=== PATIENT | male | born 1965 | race Caucasian/White ===

== ENCOUNTER 2017-09-20 10:06 | Inpatient (IN) | payer OTHER ==
[2017-09-20] MEDS ORDERED: IPRATROPIUM-ALBUTEROL 3 ML NEB INHALATION STA (10:18)
[2017-09-20] MEDS ORDERED: SODIUM CHLORIDE 0.9% 1,000 ML IV STA (10:18)
--- NOTE | 2017-09-20 10:28 | ED ---
SOB HPI - General Chief Complaint: Shortness of Breath Stated Complaint: SOB Time Seen by Provider: 09/20/17 10:13 Source: patient, RN notes reviewed Mode of arrival: ambulatory Limitations: no limitations - History of Present Illness Initial Comments: This is a 52-year-old male with a benign past medical history states she's had shortness of breath exertional dyspnea for about a week he get worse since last night. He was seen in outpatient clinic and sent here for further evaluation. He was told he may have fluid around his heart. He denies any fevers chills sweats he does not smoke he works as a clinical services specialist. There is a family history of COPD he has no chest pain with this no other modifying factors. MD Complaint: shortness of breath, cough - Related Data Allergies Allergy/AdvReac Type Severity Reaction Status Date / Time Sulfa (Sulfonamide Allergy Unknown Verified 09/20/17 10:10 Antibiotics) Review of Systems ROS Statement: Those systems with pertinent positive or pertinent negative responses have been documented in the HPI. ROS Other: All systems not noted in ROS Statement are negative. Past Medical History Past Medical History: Hypertension History of Any Multi-Drug Resistant Organisms: None Reported Past Surgical History: No Surgical Hx Reported Past Psychological History: No Psychological Hx Reported Smoking Status: Never smoker Past Alcohol Use History: Daily Past Drug Use History: None Reported General Exam - General Exam Comments Initial Comments: This is a well-developed well-nourished awake alert oriented 3 male Limitations: no limitations General appearance: alert, in no apparent distress Head exam: Present: atraumatic, normocephalic, normal inspection Eye exam: Present: normal appearance, PERRL, EOMI. Absent: scleral icterus, conjunctival injection, periorbital swelling ENT exam: Present: normal exam, mucous membranes moist Neck exam: Present: normal inspection. Absent: tenderness, meningismus, lymphadenopathy Respiratory exam: Present: decreased breath sounds. Absent: respiratory distress, wheezes, rales, rhonchi, stridor Cardiovascular Exam: Present: regular rate, normal rhythm, normal heart sounds. Absent: systolic murmur, diastolic murmur, rubs, gallop, clicks GI/Abdominal exam: Present: soft, normal bowel sounds. Absent: distended, tenderness, guarding, rebound, rigid Extremities exam: Present: normal inspection, full ROM, normal capillary refill. Absent: tenderness, pedal edema, joint swelling, calf tenderness Back exam: Present: normal inspection Neurological exam: Present: alert, oriented X3, CN II-XII intact Psychiatric exam: Present: normal affect, normal mood Skin exam: Present: warm, dry, intact, normal color. Absent: rash Course Vital Signs 09/20/17 09/20/17 09/20/17 10:07 10:50 11:01 Temperature 99.2 F Pulse Rate 60 114 H 110 H Respiratory 20 Rate Blood Pressure 146/109 O2 Sat by Pulse 96 Oximetry 09/20/17 09/20/17 11:22 12:38 Temperature Pulse Rate 110 H 97 Respiratory 18 18 Rate Blood Pressure 149/67 124/90 O2 Sat by Pulse 98 98 Oximetry - Reevaluation(s) Reevaluation #1: 09/20/17 12:48 The patient did get relief from the dyspnea with the updraft treatment was rendered. No chest pain reported. Medical Decision Making - Medical Decision Making Reevaluation patient did reveal he was feeling improved he was noted however in a monitored have PVCs. After long discussion with patient family patient will be admitted for workup for new onset congestive heart failure. The etiology is unclear at this time. I did discuss case with Dr. Duffy. Did have multiple discussions with the family members also. - Lab Data Result diagrams: 09/20/17 10:23 09/20/17 10:23 Lab Results 09/20/17 09/20/17 09/20/17 Range/Units 10:23 10:23 10:23 WBC 8.0 (3.8-10.6) k/uL RBC 5.31 (4.30-5.90) m/uL Hgb 16.5 (13.0-17.5) gm/dL Hct 49.2 (39.0-53.0) % MCV 92.6 (80.0-100.0) fL MCH 31.1 (25.0-35.0) pg MCHC 33.6 (31.0-37.0) g/dL RDW 13.4 (11.5-15.5) % Plt Count 161 (150-450) k/uL Neutrophils % 70 % Lymphocytes % 20 % Monocytes % 7 % Eosinophils % 1 % Basophils % 0 % Neutrophils # 5.6 (1.3-7.7) k/uL Lymphocytes # 1.6 (1.0-4.8) k/uL Monocytes # 0.6 (0-1.0) k/uL Eosinophils # 0.1 (0-0.7) k/uL Basophils # 0.0 (0-0.2) k/uL PT (9.0-12.0) sec INR (<1.2) APTT (22.0-30.0) sec D-Dimer (<0.60) mg/L FEU Sodium 137 (137-145) mmol/L Potassium 4.4 (3.5-5.1) mmol/L Chloride 105 (98-107) mmol/L Carbon Dioxide 17 L (22-30) mmol/L Anion Gap 15 mmol/L BUN 12 (9-20) mg/dL Creatinine 0.91 (0.66-1.25) mg/dL Est GFR (CKD-EPI)AfAm >90 (>60 ml/min/1.73 sqM) Est GFR (CKD-EPI)NonAf >90 (>60 ml/min/1.73 sqM) Glucose 111 H (74-99) mg/dL Calcium 9.1 (8.4-10.2) mg/dL Magnesium 1.8 (1.6-2.3) mg/dL Total Bilirubin 0.8 (0.2-1.3) mg/dL AST 62 H (17-59) U/L ALT 103 H (21-72) U/L Alkaline Phosphatase 52 (38-126) U/L Total Creatine Kinase 74 (55-170) U/L CK-MB (CK-2) 1.1 (0.0-2.4) ng/mL CK-MB (CK-2) Rel Index 1.5 Troponin I 0.034 (0.000-0.034) ng/mL NT-Pro-B Natriuret Pep pg/mL Total Protein 5.9 L (6.3-8.2) g/dL Albumin 3.8 (3.5-5.0) g/dL 09/20/17 09/20/17 Range/Units 10:23 10:23 WBC (3.8-10.6) k/uL RBC (4.30-5.90) m/uL Hgb (13.0-17.5) gm/dL Hct (39.0-53.0) % MCV (80.0-100.0) fL MCH (25.0-35.0) pg MCHC (31.0-37.0) g/dL RDW (11.5-15.5) % Plt Count (150-450) k/uL Neutrophils % % Lymphocytes % % Monocytes % % Eosinophils % % Basophils % % Neutrophils # (1.3-7.7) k/uL Lymphocytes # (1.0-4.8) k/uL Monocytes # (0-1.0) k/uL Eosinophils # (0-0.7) k/uL Basophils # (0-0.2) k/uL PT 10.8 (9.0-12.0) sec INR 1.1 (<1.2) APTT 22.5 (22.0-30.0) sec D-Dimer 0.55 (<0.60) mg/L FEU Sodium (137-145) mmol/L Potassium (3.5-5.1) mmol/L Chloride (98-107) mmol/L Carbon Dioxide (22-30) mmol/L Anion Gap mmol/L BUN (9-20) mg/dL Creatinine (0.66-1.25) mg/dL Est GFR (CKD-EPI)AfAm (>60 ml/min/1.73 sqM) Est GFR (CKD-EPI)NonAf (>60 ml/min/1.73 sqM) Glucose (74-99) mg/dL Calcium (8.4-10.2) mg/dL Magnesium (1.6-2.3) mg/dL Total Bilirubin (0.2-1.3) mg/dL AST (17-59) U/L ALT (21-72) U/L Alkaline Phosphatase (38-126) U/L Total Creatine Kinase (55-170) U/L CK-MB (CK-2) (0.0-2.4) ng/mL CK-MB (CK-2) Rel Index Troponin I (0.000-0.034) ng/mL NT-Pro-B Natriuret Pep 6650 pg/mL Total Protein (6.3-8.2) g/dL Albumin (3.5-5.0) g/dL - EKG Data -: EKG Interpreted by Mt EKG shows normal: sinus rhythm (Sinus tachycardia rate of 122 SC interval 132 QRS 96 QT since QTC of 320/467 possible left atrial enlargement no acute ST-T wave changes seen.) - Radiology Data Radiology results: report reviewed, image reviewed (I did review the imaging and the report. Evidence of pulmonary venous hypertension and interstitial edema.) Critical Care Time Critical Care Time: Yes Critical Care Time: 31 minutes of critical care time which includes initial presentation with history physical labs x-rays reevaluation the patient on several occasions discussed with family members on several occasions documentation the above discussion with the admitting physician. Disposition Clinical Impression: Congestive heart failure, Premature ventricular contractions, Febrile illness, acute Disposition: ADMITTED IP TO THIS [facility] Condition: Stable Referrals: Darby Kebede DO [Primary Care Provider] - 1-2 days
[2017-09-20 10:45] LABS: Basophils % (A) 0 %; Eosinophils # (A) 0.1 k/uL (0-0.7); Eosinophils % (A) 1 %; HCT 49.2 % (39.0-53.0); HGB 16.5 gm/dL (13.0-17.5); Lymphocytes # (A) 1.6 k/uL (1.0-4.8); Lymphocytes % (A) 20 %; MCH 31.1 pg (25.0-35.0); MCHC 33.6 g/dL (31.0-37.0); MCV 92.6 fL (80.0-100.0); Mean Platelet Volume 9.3; Monocytes # (A) 0.6 k/uL (0-1.0); Monocytes % (A) 7 %; Neutrophils # (A) 5.6 k/uL (1.3-7.7); Neutrophils % (A) 70 %; Platelet Count 161 k/uL (150-450); RBC 5.31 m/uL (4.30-5.90); RDW 13.4 % (11.5-15.5)
--- NOTE | 2017-09-20 10:54 | XR ---
EXAMINATION TYPE: XR chest 2V DATE OF EXAM: 09/20/2017 COMPARISON: NONE HISTORY: Difficulty breathing TECHNIQUE: Frontal and lateral views of the chest are obtained. FINDINGS: The heart is enlarged. No pneumothorax or pleural effusion. Interstitium mildly increased. There are overlying cardiac leads. IMPRESSION: Correlate for pulmonary venous hypertension and interstitial edema. Cardiomegaly. Follow -up recommended.
[2017-09-20 10:55] LABS: ALT 103 U/L (21-72); AST 62 U/L (17-59); Albumin 3.8 g/dL (3.5-5.0); Alkaline Phosphatase 52 U/L (38-126); Anion Gap 15 mmol/L; Blood Urea Nitrogen 12 mg/dL (9-20); Calcium 9.1 mg/dL (8.4-10.2); Carbon Dioxide 17 mmol/L (22-30); Chloride 105 mmol/L (98-107); Glucose 111 mg/dL (74-99); Magnesium 1.8 mg/dL (1.6-2.3); Potassium 4.4 mmol/L (3.5-5.1); Sodium 137 mmol/L (137-145); Total Bilirubin 0.8 mg/dL (0.2-1.3); Total Protein 5.9 g/dL (6.3-8.2)
[2017-09-20 10:59] LABS: D-Dimer 0.55 mg/L FEU (<0.60); INR 1.1 (<1.2); Partial Thromboplastin Time 22.5 sec (22.0-30.0); Prothrombin Time 10.8 sec (9.0-12.0)
[2017-09-20 11:19] LABS: Creatine Kinase MB 1.1 ng/mL (0.0-2.4); Troponin I 0.034 ng/mL (0.000-0.034)
[2017-09-20] MEDS ORDERED: FUROSEMIDE 10 MG/ML 4 ML VIAL IV STA (11:28)
[2017-09-20] MEDS ORDERED: NITROGLYCERIN OINT 1 INCH/GM PACKET TOPICAL STA (12:29)
[2017-09-20] MEDS ORDERED: IPRATROPIUM-ALBUTEROL 3 ML NEB INHALATION SCH (14:00)
[2017-09-20] MEDS ORDERED: IPRATROPIUM-ALBUTEROL 3 ML NEB INHALATION PRN (14:06)
[2017-09-20] MEDS: IPRATROPIUM-ALBUTEROL 3 ML NEB INHALATION SCH ×2 (15:12→19:00)
--- NOTE | 2017-09-20 16:10 | ECHOF ---
Referral Reason:Heart Failure MEASUREMENTS -------- HEIGHT: 182.9 cm WEIGHT: 127.0 kg BP: 142/90 RVIDd: 3.9 cm (< 3.3) IVSd: 0.8 cm (0.6 - 1.1) LVIDd: 6.5 cm (3.9 - 5.3) LVPWd: 1.2 cm (0.6 - 1.1) IVSs: 0.9 cm LVIDs: 5.8 cm LVPWs: 1.5 cm LA Diam: 4.9 cm (2.7 - 3.8) LAESV Index (A-L): 46.82 ml/m Ao Diam: 2.6 cm (2.0 - 3.7) AV Cusp: 1.6 cm (1.5 - 2.6) LA Diam: 5.3 cm (2.7 - 3.8) MV EXCURSION: 15.228 mm (> 18.000) MV EF SLOPE: 75 mm/s (70 - 150) EPSS: 2.0 cm MV E Byron: 0.75 m/s MV DecT: 126 ms MV A Byron: 0.31 m/s MV E/A Ratio: 2.42 RAP: 5.00 mmHg RVSP: 46.04 mmHg FINDINGS -------- Sinus rhythm. Morbid Obesity This was a techncally difficult study with suboptimal views, , Lumason utilized for enhancement of images. The left ventricular size is normal. There is severe global hypokinesis of LV . Overall left vent ricular systolic function is severely impaired with, an EF < 20%. The right ventricle is moderately enlarged. The left atrium is markedly dilated. LA is severely dilated >40 ml/m2 The right atrial size is normal. 5.0mg OF Lumason UTLIZED: 2 OR MORE WALL SEGMENTS NOT VISUALIZED. The aortic valve was not well visualized.Bicuspid aortic valve cannot be ruled out Can't exclude Bic uspid valve vs fused cusp. Mild mitral annular calcification present. Mild mitral regurgitation is present. Moderate tricuspid regurgitation present. There is moderate pulmonary hypertension. The right jono tricular systolic pressure, as measured by Doppler, is 46.04mmHg. There is no pulmonic regurgitation present. The aortic root size is normal. There is no pericardial effusion. CONCLUSIONS -------- 1. Morbid Obesity 2. This was a techncally difficult study with suboptimal views, , Lumason utilized for enhancement of images. 3. The left ventricular size is normal. 4. There is severe global hypokinesis of LV . 5. Overall left ventricular systolic function is severely impaired with, an EF < 20%. 6. The right ventricle is moderately enlarged. 7. The left atrium is markedly dilated. 8. LA is severely dilated >40 ml/m2 9. The right atrial size is normal. 10. 5.0mg OF Lumason UTLIZED: 2 OR MORE WALL SEGMENTS NOT VISUALIZED. 11. Can't exclude Bicuspid valve vs fused cusp. 12. Mild mitral annular calcification present. 13. Mild mitral regurgitation is present. 14. Moderate tricuspid regurgitation present. 15. There is moderate pulmonary hypertension. 16. The right ventricular systolic pressure, as measured by Doppler, is 46.04mmHg. 17. There is no pulmonic regurgitation present. 18. The aortic root size is normal. 19. There is no pericardial effusion. CONFIGURATION MANAGEMENT ARCHITECT: Kinga Nguyễn RDCS
[2017-09-20] MEDS: FUROSEMIDE 10 MG/ML 4 ML VIAL IV SCH ×2 (17:59→23:08)
[2017-09-20] MEDS: NITROGLYCERIN OINT 1 INCH/GM PACKET TOPICAL SCH ×2 (18:00→20:35)
[2017-09-20] MEDS ORDERED: MELATONIN 3 MG TABLET PO PRN (23:14)
[2017-09-20] MEDS ORDERED: LACTULOSE 20 GM/30 ML CUP PO PRN (23:14)
[2017-09-20] MEDS ORDERED: NALOXONE 0.4 MG/ML 1 ML VIAL IV PRN (23:14)
[2017-09-20] MEDS ORDERED: MAGNESIUM HYDROXIDE 2,400 MG/10 ML CUP PO PRN (23:14)
[2017-09-20] MEDS ORDERED: ONDANSETRON 4 MG/2 ML VIAL IVP PRN (23:14)
[2017-09-20] MEDS ORDERED: ALPRAZolam 0.25 MG TAB PO PRN (23:14)
[2017-09-20] MEDS ORDERED: CALCIUM CARBONATE 500 MG CHEWABLE PO PRN (23:14)
[2017-09-20] MEDS ORDERED: ACETAMINOPHEN TAB 325 MG TAB PO PRN (23:14)
[2017-09-21] MEDS: CARVEDILOL 3.125 MG TAB PO SCH ×2 (06:27→17:12)
--- NOTE | 2017-09-21 06:27 | HP ---
HISTORY AND PHYSICAL DATE OF ADMISSION: 09/20/17 DATE OF SERVICE: 09/20/17 PRESENTING COMPLAINT: Shortness of breath. HISTORY OF PRESENTING COMPLAINT: This is a pleasant 52 -year-old patient of Dr. Darby Kebede who presents with 2 weeks of increasing shortness shortness of breath. Has got a cough. No phlegm. No fever. Fair appetite. No obvious edema. The patient also is having orthopnea. In fact uses 2 pillows at night. Decided to come in. The patient is found to have elevated BNP, CHF and cardiomegaly. Started on IV Lasix. Admitted for the same. The patient had no prior cardiac history. On closer questioning, patient drinks an average about 20 beers a week. The patient denies any recent fever or viral infection like syndrome. REVIEW OF SYSTEMS: Constitutional: Weak and tired. HEENT none. RESPIRATORY: As above. Cardiovascular as above. Gastrointestinal none. Genitourinary: None. Musculoskeletal: None. Dermatological, hematologic, lymphatic none. Psychiatry none. Neurological none. PAST MEDICAL HISTORY: Hypertension. PAST SURGICAL HISTORY: None. SOCIAL HISTORY: . Drinks about 20 beers a week average. Does not smoke. Has a [employer]. FAMILY HISTORY: Myocardial infarction, atrial fibrillation. HOME MEDICATIONS: Viagra p.r.n. ALLERGIES: SULFA. PHYSICAL EXAMINATION: Vital signs on presentation, temperature 99.2 pulse 114, respirations 20, blood pressure 146/109, pulse ox 96% on room air. General appearance: Well built, BMI 35.9, sitting up, not in distress. Eyes: Pupils equal. Conjunctivae normal. HEENT: External appearance of nose and ears normal. Oral cavity normal. Neck JVD possibly raised. Mass not palpable. Respiratory effort increased. Lungs decreased breath sounds. Cardiovascular 1st and 2nd sounds normal. Minimal edema. ABDOMEN: Soft, nontender. Liver and spleen not palpable. Lymphatics: No lymph nodes palpable in the neck and axilla. PSYCHIATRY: Alert and oriented x3. Mood and affect normal. Neurological: Pupils equal. Cranial nerves grossly intact. Power and sensation grossly intact. INVESTIGATION: White count 18, hemoglobin 16.5, potassium 4.4, AST 62, ALT 103, troponin 0.034, 0.036. ProBNP 6650. Chest x-ray shows edema and cardiomegaly. 2D echo shows EF is less than 20% with global hypokinesis. Left atrium is markedly dilated, moderate tricuspid regurgitation and moderate pulmonary hypertension. ASSESSMENT: 1. Acute congestive heart failure exacerbation in a patient who seems to have global cardiomyopathy. Possible causes could be alcoholism. 2. Moderate tricuspid regurgitation, nonrheumatic from above. 3. Moderate secondary pulmonary hypertension from congestive heart failure. 4. Obesity BMI 35.9. 5. Chronic alcohol dependence. PLAN: Patient is started on IV Lasix. Also Coreg, Aldactone, PEMA inhibitor has been added. Cardiology was consulted. The patient was advised against use of alcohol. We will probably need a cardiac catheterization down the road once stabilized. Copy to Dr. Kebede. JOSUE / ISABEL: [id number] /
[2017-09-21] MEDS: LISINOPRIL 5 MG TAB PO SCH (08:15)
[2017-09-21] MEDS: NITROGLYCERIN OINT 1 INCH/GM PACKET TOPICAL SCH ×4 (08:15→20:46)
[2017-09-21] MEDS: ENOXAPARIN 40 MG/0.4 ML SYRINGE SQ SCH (08:15)
[2017-09-21] MEDS: FUROSEMIDE 10 MG/ML 4 ML VIAL IV SCH ×3 (08:15→23:32)
[2017-09-21] MEDS: SPIRONOLACTONE 25 MG TAB PO SCH (08:15)
--- NOTE | 2017-09-21 08:48 | US ---
EXAMINATION TYPE: US abdomen limited DATE OF EXAM: 09/21/2017 COMPARISON: NONE CLINICAL HISTORY: elevated LFT, DANIKA yesterday per patient EXAM MEASUREMENTS: Liver Length: 16.7 cm Gallbladder Wall: 0.2 cm CBD: 0.5 cm Right Kidney: 10.6 x 6.0x 5.5 cm Pancreas: hyperechoic and mid and tail obscured by overlying bowel gas Liver: fatty as is hyperechoic and attenuated posteriorly Gallbladder: wnl Evidence for sonographic Tucker's sign: no CBD: wnl Right Kidney: wnl , cortical medullary differentiation is maintained There is no ascites. IMPRESSION: Exam somewhat limited. Correlate for possible hepatic steatosis within the liver.
[2017-09-21] MEDS: IPRATROPIUM-ALBUTEROL 3 ML NEB INHALATION SCH ×4 (08:50→19:53)
[2017-09-21 09:20] LABS: Anion Gap 13 mmol/L; Blood Urea Nitrogen 14 mg/dL (9-20); Calcium 9.1 mg/dL (8.4-10.2); Carbon Dioxide 29 mmol/L (22-30); Chloride 98 mmol/L (98-107); Glucose 107 mg/dL (74-99); Potassium 4.3 mmol/L (3.5-5.1); Sodium 140 mmol/L (137-145)
--- NOTE | 2017-09-21 15:34 | P.CRDCN ---
History of Present Illness History of present illness: Mr. Moreira is a pleasant 52-year-old male with no significant past medical history. He states he has had episodes of elevated blood pressure but has never been treated for this. He denies history of coronary artery disease and has never been seen by consultant nurse for any reason. He has significant family history with his father and sister both having premature coronary artery disease. He also admits to drinking approximately 20-24 beers per week. He presents to the hospital yesterday with symptoms of progressive shortness of breath for the previous week. He denies symptoms of chest pain, dizziness, palpitations, nausea, vomiting, diaphoresis, PND or orthopnea. He states he does believe he has sleep apnea but has been never been diagnosed. 2-D echocardiogram and Doppler study performed yesterday reveals severely impaired left ventricular systolic function with ejection fraction less than 20% with severe global hypokinesia, severely dilated left atrium possibility of bicuspid valve are suffused cusp cannot be completely excluded, mild MR and moderate TR. There is also moderate pulmonary hypertension with an RVSP of 46.04 mmHg. He has been started on Coreg 3.125 mg twice a day, Lasix 40 mg IV every 8 hours, lisinopril 5 mg daily and Aldactone 25 mg daily. Since admission yesterday morning his weight has gone down 5 kg. He states on admission he also felt that he had significant abdominal swelling. Ultrasound of the abdomen was obtained and revealed possible hepatic steatosis. EKG on arrival reveals sinus tachycardia with nonspecific T-wave flattening and no evidence of acute ST or T-wave abnormalities. Heart rate was 122 on admission. Chest x-ray revealed pulmonary venous hypertension and interstitial edema with cardiomegaly. Laboratory data reviewed, hemoglobin 16.5, platelets 161, d-dimer 0.55, sodium 140, potassium 4.3, magnesium 1.8, creatinine 1.05, cardiac enzymes 0.034, 0.036 , 0.036, proBNP 6650. Review of Systems At the time of my exam: CONSTITUTIONAL: Denies fever. Denies chills. EYES: Denies blurred vision. Denies vision changes. Denies eye pain. EARS, NOSE, MOUTH & THROAT: Denies headache. Denies sore throat. Denies ear pain. CARDIOVASCULAR: Denies chest pain. Complains of exertional shortness of breath , improving. Denies orthopnea. Denies PND. Denies palpitations. RESPIRATORY: Denies cough. GASTROINTESTINAL: Complains of abdominal distention, improving. Denies abdominal pain. Denies diarrhea. Denies constipation. Denies nausea. Denies vomiting. MUSCULOSKELETAL: Denies myalgias. INTEGUMENTARY: Denies pruitis. Denies rash. NEUROLOGIC: Denies numbness. Denies tingling. Denies weakness. PSYCHIATRIC: Denies anxiety. Denies depression. ENDOCRINE: Denies fatigue. Denies weight change. Denies polydipsia. Denies polyurina. GENITOURINARY: Denies burning, hematuria or urgency with micturation. HEMATOLOGIC: Denies history of anemia. Denies bleeding. Past Medical History Past Medical History: Hypertension History of Any Multi-Drug Resistant Organisms: None Reported Past Surgical History: No Surgical Hx Reported Past Psychological History: No Psychological Hx Reported Smoking Status: Never smoker Past Alcohol Use History: Daily Past Drug Use History: None Reported - Past Family History Father Family Medical History: AFIB, Myocardial Infarction (SD) Medications and Allergies Home Medications Medication Instructions Recorded Confirmed Type Sildenafil Citrate [Viagra] 50 mg PO ONCE PRN 09/20/17 09/20/17 History Allergies Allergy/AdvReac Type Severity Reaction Status Date / Time Sulfa (Sulfonamide Allergy Unknown Verified 09/20/17 13:28 Antibiotics) Physical Exam Vitals: Vital Signs Temp Pulse Pulse Resp BP Pulse Ox 09/21/17 12:00 99 16 126/70 96 09/21/17 11:59 104 H 09/21/17 11:49 104 H 09/21/17 08:00 107 H 16 138/89 95 09/21/17 04:00 98.3 F 77 18 130/82 94 L 09/20/17 23:17 98.0 F 86 18 108/70 93 L 09/20/17 23:14 94 L 09/20/17 21:16 94 L 09/20/17 20:00 98.6 F 100 18 112/74 94 L 09/20/17 19:11 100 09/20/17 19:00 100 09/20/17 16:43 98.5 F 114 H 16 137/94 97 09/20/17 16:00 16 09/20/17 15:53 98.5 F 114 H 16 137/94 97 09/20/17 15:26 99 Intake and Output 05/20/18 05/20/18 05/20/18 06:59 14:59 22:59 Output Total 2200 Balance -2200 Output: Urine 2200 Other: # Voids 1 Weight 123.2 kg Blood pressure 126/70 heart rate 99 afebrile maintaining oxygen saturation on room air GENERAL: This is a 52-year-old male in no apparent distress at the time of my examination. Obese. HEENT: Head is atraumatic, normocephalic. Pupils are equal, round. Sclerae anicteric. Conjunctivae are clear. Mucous membranes of the mouth are moist. Neck is supple. There is no jugular venous distention. No carotid bruit is heard. LUNGS: Clear to auscultation no wheezes, rales or rhonchi. No chest wall tenderness is noted on palpation or with deep breathing. HEART: Regular rate and rhythm without murmurs, rubs or gallops. S1 and S2 heard. ABDOMEN: Soft, nontender. Bowel sounds are heard. No organomegaly noted. EXTREMITIES: No evidence of peripheral edema and no calf tenderness noted. VASCULAR: Radial and dorsalis pedis pulses palpated, no evidence of clubbing. NEUROLOGIC: Patient is awake, alert and oriented x3. Results 09/20/17 10:23 09/21/17 08:16 Cardiac Enzymes 09/20/17 09/20/17 Range/Units 19:17 22:49 Troponin I 0.036 H* 0.036 H* (0.000-0.034) ng/mL Comprehensive Metabolic Panel 09/21/17 Range/Units 08:16 Sodium 140 (137-145) mmol/L Potassium 4.3 (3.5-5.1) mmol/L Chloride 98 (98-107) mmol/L Carbon Dioxide 29 (22-30) mmol/L BUN 14 (9-20) mg/dL Creatinine 1.05 (0.66-1.25) mg/dL Glucose 107 H (74-99) mg/dL Calcium 9.1 (8.4-10.2) mg/dL Current Medications Generic Name Dose Route Start Last Admin Trade Name Freq PRN Reason Stop Dose Admin Acetaminophen 650 mg 09/20/17 23:14 Tylenol Tab PO Q6HR PRN Mild Pain or Fever > 100.5 Albuterol/Ipratropium 3 ml 09/20/17 16:00 09/21/17 11:48 Duoneb 0.5 Mg-3 Mg/3 Ml Soln INHALATION 3 ml RT-QID SULLY Administration Albuterol/Ipratropium 3 ml 09/20/17 14:06 Duoneb 0.5 Mg-3 Mg/3 Ml Soln INHALATION RT-Q2H PRN Shortness Of Breath Or Wheezing Alprazolam 0.25 mg 09/20/17 23:14 Xanax PO Q6HR PRN Anxiety Calcium Carbonate/Glycine 1,000 mg 09/20/17 23:14 Tums PO Q4HR PRN Dyspepsia Carvedilol 3.125 mg 09/21/17 07:30 09/21/17 06:27 Coreg PO 3.125 mg BID-W/MEALS [facility] Administration Enoxaparin Sodium 40 mg 09/21/17 09:00 09/21/17 08:15 Lovenox SQ 40 mg DAILY [facility] Administration Furosemide 40 mg 09/20/17 16:00 09/21/17 08:15 Lasix IV 40 mg Q8HR [facility] Administration Lisinopril 5 mg 09/21/17 09:00 09/21/17 08:15 Zestril PO 5 mg DAILY [facility] Administration Magnesium Hydroxide 2,400 mg 09/20/17 23:14 Milk Of Magnesia PO DAILY PRN Constipation Melatonin 3 mg 09/20/17 23:14 Melatonin PO HS PRN Insomnia Naloxone HCl 0.2 mg 09/20/17 23:14 Narcan IV Q2M PRN Opioid Reversal Nitroglycerin 1 inch 09/20/17 18:00 09/21/17 12:24 Nitro-Bid Oint TOPICAL 1 inch QID [facility] Administration Ondansetron HCl 4 mg 09/20/17 23:14 Zofran IVP Q8HR PRN Nausea And Vomiting Spironolactone 25 mg 09/21/17 09:00 09/21/17 08:15 Aldactone PO 25 mg DAILY [facility] Administration Intake and Output 09/21/17 09/21/17 09/21/17 06:59 14:59 22:59 Output Total 2200 Balance -2200 Output: Urine 2200 Other: # Voids 1 Weight 123.2 kg 09/20/17 10:23 09/21/17 08:16 Assessment and Plan Assessment: ASSESSMENT 1. New onset acute systolic heart failure, ejection fraction less than 20%. 2. Mild troponin leak 3. Moderate pulmonary hypertension 4. Chronic alcohol use 5. Obesity, BMI 35.9 PLAN Continue with Zocor a, lisinopril, Lasix and Aldactone. Add aspirin 81 mg daily. Follow kidney function and electrolytes daily. Check lipid panel, possibly add on a statin. Daily weights and intake and output for accurate measurement of diuresis. Lengthy discussion had with the patient and his , mother and sister regarding this new diagnosis in the current plan. Possible cardiac catheterization during this admission. Further recommendations to follow. Thank you kindly for this consultation. Nurse Practitioner note has been reviewed, I agree with a documented findings and plan of care. Patient was seen and examined.
[2017-09-21 16:37] LABS: Cholesterol 162 mg/dL (<200); HDL Cholesterol 77 mg/dL (40-60); LDL Cholesterol,Calculated 69 mg/dL (0-99); Triglycerides 82 mg/dL (<150)
[2017-09-21] MEDS: ASPIRIN 81 MG PO SCH (17:10)
--- NOTE | 2017-09-21 20:15 | PN ---
PROGRESS NOTE DATE OF SERVICE: September 21, 2017. PRESENTING COMPLAINT: Shortness of breath. INTERVAL HISTORY: The patient presented with acute congestive heart failure exacerbation EF less than 20% on IV Lasix breathing is better. No chest pain. No edema. REVIEW OF SYSTEMS: Done for constitutional, cardiovascular, GI, pulmonary and relevant findings as above. CURRENT MEDICATIONS: Reviewed that include IV Lasix and Aldactone. PHYSICAL EXAMINATION: Temperature 98.3, pulse 97, respiratory 18, blood pressure 130/82, pulse ox 94% on room air. General appearance: General appearance: Sitting up, comfortable. Eyes: Pupils equal. Conjunctivae normal. HEENT: External appearance of nose and ears normal. Oral cavity normal. Neck JVD unable to assess. Mass not palpable. Respiratory effort normal. Lungs improved air entry. Cardiovascular 1st and second sounds minimal edema. ABDOMEN: Soft, nontender. Liver and spleen not palpable. Psychiatry: Alert and oriented x3. Mood and affect normal. INVESTIGATIONS: Potassium 4.3, BUN creatinine is normal. LDL 69. ASSESSMENT: 1. 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 2. Moderate tricuspid regurgitation, nonrheumatic. 3. Moderate secondary pulmonary hypertension from congestive heart failure. 4. Obesity BMI 35.9. 5. Chronic alcohol dependence. 6. Hepatic steatosis. PLAN: Continue current medication and treatment plan. Care was discussed with the patient and at the bedside. Cardiology is planning to do a cardiac catheterization. MMROMAL / IJN: [id number] /
[2017-09-22] MEDS: CARVEDILOL 3.125 MG TAB PO SCH ×2 (06:11→16:45)
[2017-09-22] MEDS: IPRATROPIUM-ALBUTEROL 3 ML NEB INHALATION SCH ×4 (07:04→19:53)
[2017-09-22 07:44] LABS: Calcium 9.2 mg/dL (8.4-10.2); Potassium 3.9 mmol/L (3.5-5.1)
[2017-09-22] MEDS: FUROSEMIDE 10 MG/ML 4 ML VIAL IV SCH (07:55)
[2017-09-22] MEDS: ENOXAPARIN 40 MG/0.4 ML SYRINGE SQ SCH (07:56)
[2017-09-22] MEDS: ASPIRIN 81 MG PO SCH (07:56)
[2017-09-22] MEDS: NITROGLYCERIN OINT 1 INCH/GM PACKET TOPICAL SCH ×4 (07:56→22:15)
[2017-09-22] MEDS: LISINOPRIL 5 MG TAB PO SCH (07:56)
[2017-09-22] MEDS: SPIRONOLACTONE 25 MG TAB PO SCH (08:00)
[2017-09-22] MEDS ORDERED: SODIUM CHLORIDE 0.9% 1,000 ML in EMPTY BAG 1 BAG IV ONE (08:30)
[2017-09-22] MEDS ORDERED: ALPRAZolam 0.25 MG TAB PO PRN (08:30)
[2017-09-22] MEDS ORDERED: ATORVASTATIN 80 MG TAB PO STA (08:30)
[2017-09-22] MEDS ORDERED: NITROGLYCERIN SL TABS 0.4 MG TAB SUBLINGUAL PRN (08:30)
[2017-09-22] MEDS ORDERED: ASPIRIN 325 MG TAB PO STA (08:30)
[2017-09-22] MEDS ORDERED: ALPRAZolam 0.5 MG TAB PO PRN (08:30)
[2017-09-22] MEDS ORDERED: SODIUM CHLORIDE 0.9% 1,000 ML IV ONE (13:57)
[2017-09-22] MEDS ORDERED: MIDAZOLAM 2 MG/2 ML VIAL IVP ONE (14:01)
[2017-09-22] MEDS ORDERED: fentaNYL (PF) 50 MCG/ML 2 ML AMP IVP ONE (14:02)
[2017-09-22] MEDS ORDERED: LIDOCAINE 2% INJ 20 MG/ML SQ ONE (14:03)
[2017-09-22] MEDS ORDERED: HEPARIN SODIUM 1,000 UN/ML (10ML VL) IV ONE (14:08)
[2017-09-22] MEDS ORDERED: VERAPAMIL SYRINGE (5 MG/10 ML) INTRAARTER ONE (14:08)
[2017-09-22 14:19] VITALS: BMI 34.8
[2017-09-22] MEDS ORDERED: IOPAMIDOL-370 125ML BTL INJ ONE (14:24)
[2017-09-22] MEDS ORDERED: RX INFO: IV CONTRAST WAS GIVEN 1 EACH MISC MISCELLANE PRN (14:29)
[2017-09-22] MEDS ORDERED: SODIUM CHLORIDE 0.9% 1,000 ML IV SCH (14:30)
--- NOTE | 2017-09-22 14:37 | P.PCN ---
Date of Procedure: 09/22/17 Preoperative Diagnosis: Cardiomyopathy, CHF Postoperative Diagnosis: The same Procedure(s) Performed: Left heart catheterization without left ventriculography Description of Procedure: HISTORY: This is a 51-year-old gentleman who was admitted to the hospital with increasing shortness of breath and evidence of congestive heart failure. Echo Cardigan showed a cardiomyopathy with an ejection fraction of 20%. Patient has strong family history of ischemic heart disease. He is advised to have a cardiac catheterization to rule out underlying ischemic heart disease. CONSENT:I have discussed the risks, benefits and alternative therapies for the above-mentioned procedure and for both sedation/analgesia as well as necessary blood product administration, if indicated, as they pertain to this patient. The patient has indicated understanding and acceptance of the risks and procedures discussed. PROCEDURE: Patient was brought to the lab in a fasting state. Patient was given some IV sedation. The right wrist is infiltrated with lidocaine and right radial artery was entered using Seldinger technique. Patient was given 4000 heparin. A 6-Beninese catheter was left in place and selective coronary arteriography was performed. Patient tolerated the procedure well. TR band was applied for hemostasis. No immediate complications were noted and patient was transferred to [facility] in a stable condition Conscious Sedation: Versed 2mg Fentanyl 50g Duration 43minutes HEMODYNAMICS: The aortic pressure is about 100/60. Left ankle end-diastolic pressure is 12-16. There was no gradient across the aortic valve SELECTIVE CORONARY ARTERIOGRAPHY: LEFT MAIN: Long and patent without any disease THE LEFT ANTERIOR DESCENDING CORONARY ARTERY: This is a good caliber vessel giving rise to good-sized diagonal branch. The LAD and branches are free of occlusive disease. THE INTERMEDIATE CORONARY ARTERY: This is a moderate caliber vessel free of occlusive disease THE LEFT CIRCUMFLEX AND IS CORONARY ARTERY: This is a moderate caliber vessel free of any occlusive disease THE RIGHT CORONARY ARTERY: This is a dominant vessel giving rise good-sized PDA and PLV. Free of occlusive disease LEFT VENTRICULOGRAPHY: Not performed FINAL IMPRESSION: Normal coronary arteries. Mildly elevated end-diastolic pressure PLAN: Maximum medical therapy PROGNOSIS: Guarded
--- NOTE | 2017-09-23 00:21 | PN ---
PROGRESS NOTE DATE OF SERVICE: 09/22/2017 PRESENTING COMPLAINT: Short of breath. 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 Did have a cardiac catheterization that came back to be normal. Breathing is stable. Post cath lying in bed. REVIEW OF SYSTEMS: Done for constitutional, cardiovascular, GI, pulmonary; relevant findings as above. CURRENT MEDICATIONS: Reviewed and include Coreg, oral Lasix, Aldactone. PHYSICAL EXAMINATION: Temperature afebrile, pulse 93, respirations 16, blood pressure 103/68, pulse ox 93% on room air. GENERAL APPEARANCE: Lying in bed, comfortable. EYES: Pupils equal. Conjunctivae normal. HEENT: External appearance of nose and ears normal. Oral cavity normal. NECK: JVD not raised. Mass not palpable. Respiratory effort normal. Lungs are clear. CARDIOVASCULAR: First and seconds sounds normal. No edema. ABDOMEN: Soft and nontender. Liver and spleen not palpable. PSYCHIATRY: Alert and oriented x3. Mood and affect normal. Wrist compression strip in place. INVESTIGATIONS: Potassium 3.9, BUN 18, creatinine 1.30. ASSESSMENT: 1. Acute congestive heart failure exacerbation from alcoholic cardiomyopathy, ejection fraction less than 20%. 2. Cardiac catheterization showing negative for coronary artery disease. 3. Moderate tricuspid regurgitation, nonrheumatic. 4. Moderate secondary pulmonary hypertension from congestive heart failure. 5. Obesity; BMI 35.9. 6. Chronic alcohol dependence. 7. Hepatic steatosis. PLAN: Care was discussed with the patient. Questions were answered. Repeat electrolytes in the morning. MMODL / IJN: [id number] /
[2017-09-23 03:13] VITALS: TEMP 97.8
[2017-09-23] MEDS: CARVEDILOL 3.125 MG TAB PO SCH (06:43)
[2017-09-23 07:43] LABS: Calcium 9.6 mg/dL (8.4-10.2); Potassium 4.6 mmol/L (3.5-5.1)
[2017-09-23] MEDS: ASPIRIN 81 MG PO SCH (07:55)
[2017-09-23] MEDS: SPIRONOLACTONE 25 MG TAB PO SCH (07:56)
[2017-09-23] MEDS: LISINOPRIL 5 MG TAB PO SCH (07:56)
[2017-09-23] MEDS: ENOXAPARIN 40 MG/0.4 ML SYRINGE SQ SCH (07:57)
[2017-09-23 08:04] VITALS: RESP 16
[2017-09-23] MEDS: IPRATROPIUM-ALBUTEROL 3 ML NEB INHALATION SCH ×2 (08:07→11:25)
[2017-09-23] MEDS ORDERED: FUROSEMIDE 40 MG TAB PO SCH (09:00)
[2017-09-23 12:19] VITALS: BP 99/77; PULSE 85
--- NOTE | 2017-09-23 14:51 | P.PN ---
Subjective Progress Note Date: 09/23/17 This is a pleasant 52-year-old gentleman who presented to the hospital with symptoms of severe shortness of breath. Patient has known history of premature coronary artery disease, EtOH use, and hypertension. EKG on arrival showed sinus tachycardia with nonspecific ST-T wave changes, mild abnormality noted in troponin, BNP level elevated. Echocardiogram with Doppler study was performed which revealed an ejection fraction of less than 20%. Patient underwent a cardiac catheterization yesterday by Dr. Choi which did not reveal any obstructive coronary artery disease. Patient was seen and examined this morning, feels well, denies any chest pain or difficulty in breathing. He will be discharged home today to follow-up with Dr. Choi in the office. Patient will be discharged home on aspirin 81 mg daily, Coreg 3.125 mg twice a day, Lasix 40 mg daily, lisinopril 5 mg daily, and Aldactone 25 mg daily. Objective - Vital Signs Vital signs: Vital Signs Temp 97.8 F 09/23/17 04:00 Pulse 85 09/23/17 12:00 Resp 16 09/23/17 12:00 BP 99/77 09/23/17 12:00 Pulse Ox 97 09/23/17 12:00 Intake & Output 09/22/17 09/23/17 09/23/17 18:59 06:59 18:59 Intake Total 340 480 Balance 340 480 Weight 123.2 kg 121.1 kg Intake: IV 100 Oral 240 480 Other: Voiding Method Toilet Toilet - Exam PHYSICAL EXAMINATION: HEENT: Head is atraumatic, normocephalic. Pupils equal, round. Neck is supple. There is no elevated jugular venous pressure. HEART EXAMINATION: Heart S1, S2 normal. No murmur or gallop heard. CHEST EXAMINATION: Lungs are clear to auscultation and precussion. No chest wall tenderness is noted on palpation or with deep breathing. ABDOMEN: Soft, nontender. Bowel sounds are heard. No organomegaly noted. EXTREMITIES: 2+ peripheral pulses with no evidence of peripheral edema and no calf tenderness noted. Right radial site clean and dry, good distal pulse. NEUROLOGIC patient is awake, alert and oriented -3. . - Labs CBC & Chem 7: 09/20/17 10:23 09/23/17 06:45 Labs: Abnormal Lab Results - Last 24 Hours (Table) 09/23/17 Range/Units 06:45 Chloride 97 L (98-107) mmol/L Glucose 112 H (74-99) mg/dL Microbiology - Last 24 Hours (Table) 09/20/17 10:23 Blood Culture - Preliminary Blood No Growth after 72 hours Assessment and Plan Plan: Assessment and plan #1 nonischemic cardiomyopathy, status post cardiac catheterization which did not reveal any significant obstructive coronary artery disease. #2 significant EtOH use #3 hypertension #4 family history of premature coronary artery disease #5 systolic congestive heart failure acute on chronic Plan Patient may be able to be discharged home today from cardiology's perspective, we'll make him a follow-up appointment to see in the office post discharge. Patient will be discharged home on Aldactone 25 mg daily, lisinopril 5 mg daily, Lasix 40 mg daily, aspirin 81 mg daily, Coreg 3.125 mg twice a day. DNP note has been reviewed, I agree with a documented findings and plan of care. Patient was seen and examined.
--- NOTE | 2017-09-24 06:31 | DS ---
DISCHARGE SUMMARY DATE OF ADMISSION: 09/20/17. DATE OF DISCHARGE: September 23, 2017. FINAL DIAGNOSE: 1. Acute congestive heart failure exacerbation from alcoholic cardiomyopathy EF less than 20%. 2. Moderate tricuspid regurgitation, nonrheumatic. 3. Moderate secondary pulmonary hypertension from congestive heart failure. 4. Obesity, BMI 35.9. 5. Chronic alcohol dependence. 6. Hepatic steatosis. PROCEDURE: Cardiac catheterization showing normal coronaries. HOSPITAL COURSE: This patient who drinks quite a bit of alcohol presented with short of breath, CHF picture. Did respond well to Lasix. 2D echo showed EF less than 20%. Cardiac cath was normal. The CHF symptoms are greatly improved by the time of discharge. Care was discussed with the patient by the time of discharge. Further activity as per Cardiology. PHYSICAL EXAMINATION: On exam lungs are clear. No edema. CONSULTATION: Dr. Choi from Cardiology. DISCHARGE MEDICATIONS: 1. Aspirin 81 mg daily. 2. Coreg 3.125 p.o. b.i.d. 3. Lasix 40 mg p.o. daily. 4. Zestril 5 mg p.o. daily. 5. Aldactone 25 mg p.o. daily. 6. Viagra p.r.n. Follow up with Darby Kebede on September 25, 2017. Dr. Choi on September 30, 2017. Labs, BMP in 1 week. Copy to Darby Kebede. JOSUE / IJN: [id number] /
== END 2017-09-23 15:00 | disposition home or self-care (01) | DRG 287 ==
LOC: EC 10:06 → 6SEL 12:51
PROVIDERS: ADMIT Hospitalist; ATTEND Hospitalist
PROC: B2111ZZ Fluoroscopy of Multiple Coronary Arteries using Low Osmolar Contrast (ICD-10-PCS; 2017-09-22)
PROC: 4A023N7 Measurement of Cardiac Sampling and Pressure, Left Heart, Percutaneous Approach (ICD-10-PCS; principal; 2017-09-22 13:40)
DX: I11.0 Hypertensive heart disease with heart failure (principal); F10.288 Alcohol dependence with other alcohol-induced disorder; I42.6 Alcoholic cardiomyopathy; I50.23 Acute on chronic systolic (congestive) heart failure; E66.9 Obesity, unspecified; I36.1 Nonrheumatic tricuspid (valve) insufficiency; G47.30 Sleep apnea, unspecified; I27.29 Other secondary pulmonary hypertension; I49.3 Ventricular premature depolarization; I25.10 Atherosclerotic heart disease of native coronary artery without angina pectoris; K76.0 Fatty (change of) liver, not elsewhere classified; Z68.35 Body mass index [BMI] 35.0-35.9, adult; Z79.899 Other long term (current) drug therapy; Z82.49 Family history of ischemic heart disease and other diseases of the circulatory system; Z82.5 Family history of asthma and other chronic lower respiratory diseases
CPT/HCPCS: 36415; 71046; 76705; 80048; 80053; 80061; 82550; 82553; 83735; 83880; 84484; 85025; 85379; 85610; 85730; 87040; 93005; 93306; 93458; 94640; 94760; 96374; 99291

== ENCOUNTER → 2017-09-30 | Outpatient (CLI) | payer SELFPAY ==
[2017-09-30 17:27] LABS: Calcium 9.5 mg/dL (8.4-10.2); Potassium 4.9 mmol/L (3.5-5.1)
== END | disposition home or self-care (01) ==
LOC: LABWHC1 16:30
PROVIDERS: ATTEND Internal Medicine Cardiovascular Disease
DX: I50.9 Heart failure, unspecified (principal)
CPT/HCPCS: 36415; 80048

== ENCOUNTER 2018-03-15 04:42 | Emergency (ER) | payer OTHER ==
[2018-03-15 04:51] VITALS: RESP 18
[2018-03-15 05:29] LABS: Basophils % (A) 0 %; Eosinophils % (A) 13 %; HCT 44.9 % (39.0-53.0); HGB 15.2 gm/dL (13.0-17.5); Lymphocytes # (A) 1.9 k/uL (1.0-4.8); Lymphocytes % (A) 25 %; MCH 29.9 pg (25.0-35.0); Mean Platelet Volume 8.6; Monocytes # (A) 0.6 k/uL (0-1.0); Monocytes % (A) 8 %; Neutrophils # (A) 3.9 k/uL (1.3-7.7); Neutrophils % (A) 52 %; Platelet Count 171 k/uL (150-450); RDW 12.7 % (11.5-15.5); WBC 7.6 k/uL (3.8-10.6)
[2018-03-15 05:38] LABS: INR 1.1 (<1.2); Partial Thromboplastin Time 24.6 sec (22.0-30.0); Prothrombin Time 10.4 sec (9.0-12.0)
[2018-03-15 05:44] LABS: ALT 32 U/L (21-72); AST 30 U/L (17-59); Albumin 4.2 g/dL (3.5-5.0); Alkaline Phosphatase 53 U/L (38-126); Anion Gap 11 mmol/L; Blood Urea Nitrogen 18 mg/dL (9-20); Calcium 9.4 mg/dL (8.4-10.2); Carbon Dioxide 24 mmol/L (22-30); Chloride 106 mmol/L (98-107); Glucose 113 mg/dL (74-99); Magnesium 1.9 mg/dL (1.6-2.3); Potassium 4.5 mmol/L (3.5-5.1); Sodium 141 mmol/L (137-145); Total Bilirubin 0.5 mg/dL (0.2-1.3); Total Protein 7.4 g/dL (6.3-8.2)
--- NOTE | 2018-03-15 05:56 | ED ---
URI HPI - General Chief Complaint: Upper Respiratory Infection Stated Complaint: cough Time Seen by Provider: 03/15/18 05:03 Source: patient Mode of arrival: ambulatory Limitations: no limitations - History of Present Illness Initial Comments: Malachi is a 52-year-old male with a history of congestive heart failure who presents the emergency department today for evaluation of 1 week of URI-like symptoms with nasal congestion and a dry nonproductive cough. Patient reports that for approximately one week he has had some nasal congestion. He reports that he's been having a nonproductive cough which is worse when lying supine. Cough is not associated with any chest pain or shortness of breath. He doesn't feel as though he is wheezing. He does feels though there is a tickle in his throat and he is bothered by the postnasal drip. Patient does take lisinopril but has never had any dry cough or problems with the lisinopril since being prescribed in July of this year. Patient's at bedside is concerned because of the patient's history of congestive heart failure and wanted to have him evaluated to be sure that his symptoms are not secondary to congestive heart failure. - Related Data Home Medications Medication Instructions Recorded Confirmed Sildenafil Citrate [Viagra] 50 mg PO ONCE PRN 09/20/17 09/20/17 Previous Rx's Medication Instructions Recorded Aspirin 81 mg PO DAILY #30 chew 09/23/17 Carvedilol [Coreg] 3.125 mg PO BID-W/MEALS #60 tab 09/23/17 Furosemide [Lasix] 40 mg PO DAILY #30 tab 09/23/17 Lisinopril [Zestril] 5 mg PO DAILY #30 tab 09/23/17 Spironolactone [Aldactone] 25 mg PO DAILY #30 tab 09/23/17 Azithromycin [Zithromax Z-pack] 0 mg PO DIRECTED #6 tab 03/15/18 Allergies Allergy/AdvReac Type Severity Reaction Status Date / Time Sulfa (Sulfonamide Allergy Unknown Verified 03/15/18 04:50 Antibiotics) Review of Systems ROS Statement: Those systems with pertinent positive or pertinent negative responses have been documented in the HPI. ROS Other: All systems not noted in ROS Statement are negative. Past Medical History Past Medical History: Hypertension Additional Past Medical History / Comment(s): CHF History of Any Multi-Drug Resistant Organisms: None Reported Past Surgical History: No Surgical Hx Reported Past Psychological History: No Psychological Hx Reported Smoking Status: Never smoker Past Alcohol Use History: Daily Past Drug Use History: None Reported - Past Family History Father Family Medical History: AFIB, Myocardial Infarction ([place]) General Exam - General Exam Comments Initial Comments: Physical Exam GENERAL: Patient is well-developed and well-nourished. Patient is nontoxic and well- hydrated and is in no distress. HENT: Normocephalic, Atraumatic. Edematous nasal turbinates, postnasal drip EYES: PERRL, EOMI PULMONARY: Unlabored respirations. No audible rales rhonchi or wheezing was noted. CARDIOVASCULAR: There is a regular rate and rhythm without any murmurs gallops or rubs. ABDOMEN: Soft and nontender with normal bowel sounds. SKIN: Skin is clear with no lesions or rashes and otherwise unremarkable. : Deferred NEUROLOGIC: Patient is alert and oriented x3. Moving all extremities spontaneously MUSCULOSKELETAL: Normal extremities with adequate strength and full range of motion. No lower extremity swelling or edema. No calf tenderness. PSYCHIATRIC: Normal psychiatric evaluation. Limitations: no limitations Limitations: no limitations Course Vital Signs 03/15/18 03/15/18 03/15/18 04:45 04:47 06:00 Temperature 98.2 F Pulse Rate 77 71 Respiratory 19 18 17 Rate Blood Pressure 153/95 125/81 O2 Sat by Pulse 97 93 L Oximetry 03/15/18 03/15/18 06:15 06:19 Temperature 98.9 F Pulse Rate 66 Respiratory 18 Rate Blood Pressure 129/84 O2 Sat by Pulse 95 Oximetry Medical Decision Making - Medical Decision Making The patient was seen and evaluated, history was obtained from the patient and at bedside Patient with history of CHF, presenting with nonproductive cough for one week as well as URI symptoms with nasal congestion and postnasal drip Multiple possible etiologies for this patient's cough, could be related to URI and postnasal drip, could be related to PEMA inhibitor use, could be congestive heart failure, labs and imaging ordered Absent mild elevation of BNP, troponin negative, labs otherwise within normal limits Chest x-ray with no focal consolidations At this time I will plan to treat the patient with azithromycin for sinusitis. Supportive care was discussed including using nasal spray, taking antihistamines daily. And cough drops for symptomatic relief. I stressed to the patient the importance of avoiding any medications with decongestant pseudoephedrine and it as he does have a cardiac history. Patient expressed understanding of this. The need for follow-up with his primary care was discussed. All questions pertaining care were answered, return parameters were discussed with the patient was discharged home in stable condition. - Lab Data Result diagrams: 03/15/18 05:15 03/15/18 05:15 Lab Results 03/15/18 03/15/18 03/15/18 Range/Units 05:15 05:15 05:15 WBC 7.6 (3.8-10.6) k/uL RBC 5.10 (4.30-5.90) m/uL Hgb 15.2 (13.0-17.5) gm/dL Hct 44.9 (39.0-53.0) % MCV 88.0 (80.0-100.0) fL MCH 29.9 (25.0-35.0) pg MCHC 34.0 (31.0-37.0) g/dL RDW 12.7 (11.5-15.5) % Plt Count 171 (150-450) k/uL Neutrophils % 52 % Lymphocytes % 25 % Monocytes % 8 % Eosinophils % 13 % Basophils % 0 % Neutrophils # 3.9 (1.3-7.7) k/uL Lymphocytes # 1.9 (1.0-4.8) k/uL Monocytes # 0.6 (0-1.0) k/uL Eosinophils # 1.0 H (0-0.7) k/uL Basophils # 0.0 (0-0.2) k/uL PT (9.0-12.0) sec INR (<1.2) APTT (22.0-30.0) sec Sodium 141 (137-145) mmol/L Potassium 4.5 (3.5-5.1) mmol/L Chloride 106 (98-107) mmol/L Carbon Dioxide 24 (22-30) mmol/L Anion Gap 11 mmol/L BUN 18 (9-20) mg/dL Creatinine 0.97 (0.66-1.25) mg/dL Est GFR (CKD-EPI)AfAm >90 (>60 ml/min/1.73 sqM) Est GFR (CKD-EPI)NonAf 90 (>60 ml/min/1.73 sqM) Glucose 113 H (74-99) mg/dL Calcium 9.4 (8.4-10.2) mg/dL Magnesium 1.9 (1.6-2.3) mg/dL Total Bilirubin 0.5 (0.2-1.3) mg/dL AST 30 (17-59) U/L ALT 32 (21-72) U/L Alkaline Phosphatase 53 (38-126) U/L Troponin I (0.000-0.034) ng/mL NT-Pro-B Natriuret Pep 995 pg/mL Total Protein 7.4 (6.3-8.2) g/dL Albumin 4.2 (3.5-5.0) g/dL 03/15/18 03/15/18 Range/Units 05:15 05:15 WBC (3.8-10.6) k/uL RBC (4.30-5.90) m/uL Hgb (13.0-17.5) gm/dL Hct (39.0-53.0) % MCV (80.0-100.0) fL MCH (25.0-35.0) pg MCHC (31.0-37.0) g/dL RDW (11.5-15.5) % Plt Count (150-450) k/uL Neutrophils % % Lymphocytes % % Monocytes % % Eosinophils % % Basophils % % Neutrophils # (1.3-7.7) k/uL Lymphocytes # (1.0-4.8) k/uL Monocytes # (0-1.0) k/uL Eosinophils # (0-0.7) k/uL Basophils # (0-0.2) k/uL PT 10.4 (9.0-12.0) sec INR 1.1 (<1.2) APTT 24.6 (22.0-30.0) sec Sodium (137-145) mmol/L Potassium (3.5-5.1) mmol/L Chloride (98-107) mmol/L Carbon Dioxide (22-30) mmol/L Anion Gap mmol/L BUN (9-20) mg/dL Creatinine (0.66-1.25) mg/dL Est GFR (CKD-EPI)AfAm (>60 ml/min/1.73 sqM) Est GFR (CKD-EPI)NonAf (>60 ml/min/1.73 sqM) Glucose (74-99) mg/dL Calcium (8.4-10.2) mg/dL Magnesium (1.6-2.3) mg/dL Total Bilirubin (0.2-1.3) mg/dL AST (17-59) U/L ALT (21-72) U/L Alkaline Phosphatase (38-126) U/L Troponin I <0.012 (0.000-0.034) ng/mL NT-Pro-B Natriuret Pep pg/mL Total Protein (6.3-8.2) g/dL Albumin (3.5-5.0) g/dL Disposition Clinical Impression: Upper respiratory infection Disposition: HOME SELF-CARE Condition: Good Instructions: Upper Respiratory Infection (ED) Prescriptions: Azithromycin [Zithromax Z-pack] 0 mg PO DIRECTED #6 tab Is patient prescribed a controlled substance at d/c from ED?: No Referrals: None,Stated [Primary Care Provider] - 1-2 days
--- NOTE | 2018-03-15 06:16 | XR ---
EXAMINATION TYPE: XR chest 2V DATE OF EXAM: 03/15/2018 COMPARISON: 09/20/2017 HISTORY: Cough and chest pain TECHNIQUE: Frontal and lateral views of the chest are obtained. FINDINGS: Heart and mediastinum are normal. Lungs are clear. Diaphragm is normal. Bony thorax appear s normal. There are chest leads. IMPRESSION: Normal chest. There is clearing of the pulmonary congestion and cardiomegaly compared to last exam.
[2018-03-15 06:28] VITALS: TEMP 98.9
[2018-03-15 06:33] VITALS: BP 129/84; PULSE 66
== END 2018-03-15 06:20 | disposition home or self-care (01) ==
LOC: EC 04:42
DX: J06.9 Acute upper respiratory infection, unspecified (principal); Z88.2 Allergy status to sulfonamides
CPT/HCPCS: 36415; 71046; 80053; 83735; 83880; 84484; 85025; 85610; 85730; 93005; 99284

== ENCOUNTER 2018-06-06 22:17 | Emergency (ER) | payer OTHER ==
[2018-06-06 22:34] VITALS: TEMP 98.1
[2018-06-06] MEDS ORDERED: IPRATROPIUM-ALBUTEROL 3 ML NEB INHALATION STA (23:06)
--- NOTE | 2018-06-06 23:21 | ED ---
General Adult HPI - General Chief complaint: Upper Respiratory Infection Stated complaint: Cough Time Seen by Provider: 06/06/18 22:48 Source: patient, RN notes reviewed Mode of arrival: ambulatory Limitations: no limitations - History of Present Illness Initial comments: 52-year-old male with a past history of hypertension and CHF presents to the emergency department for a chief cough 3 days. Patient states the cough is productive. He states he is coughing up clear sputum. He also states he does feel somewhat wheezy. He denies shortness of breath or chest pain. He states he does get into coughing fits. He denies history of smoking. He denies history of COPD or asthma. Patient was diagnosed with pneumonia a few months ago as well. He denies fevers or chills at home. Patient has no other complaints at this time including shortness of breath, chest pain, abdominal pain, nausea or vomiting, headache, or visual changes. - Related Data Home Medications Medication Instructions Recorded Confirmed Sildenafil Citrate [Viagra] 50 mg PO ONCE PRN 09/20/17 09/20/17 Previous Rx's Medication Instructions Recorded Aspirin 81 mg PO DAILY #30 chew 09/23/17 Carvedilol [Coreg] 3.125 mg PO BID-W/MEALS #60 tab 09/23/17 Furosemide [Lasix] 40 mg PO DAILY #30 tab 09/23/17 Lisinopril [Zestril] 5 mg PO DAILY #30 tab 09/23/17 Spironolactone [Aldactone] 25 mg PO DAILY #30 tab 09/23/17 Azithromycin [Zithromax Z-pack] 0 mg PO DIRECTED #6 tab 03/15/18 Azithromycin [Zithromax Z-pack] 250 mg PO DIRECTED #6 tab 06/07/18 predniSONE 50 mg PO DAILY #5 tablet 06/07/18 Allergies Allergy/AdvReac Type Severity Reaction Status Date / Time Sulfa (Sulfonamide Allergy Unknown Verified 06/06/18 22:34 Antibiotics) Review of Systems ROS Statement: Those systems with pertinent positive or pertinent negative responses have been documented in the HPI. ROS Other: All systems not noted in ROS Statement are negative. Past Medical History Past Medical History: Hypertension Additional Past Medical History / Comment(s): CHF History of Any Multi-Drug Resistant Organisms: None Reported Past Surgical History: No Surgical Hx Reported Past Psychological History: No Psychological Hx Reported Smoking Status: Never smoker Past Alcohol Use History: Daily Past Drug Use History: None Reported - Past Family History Father Family Medical History: AFIB, Myocardial Infarction ([place]) General Exam Limitations: no limitations General appearance: alert, in no apparent distress Head exam: Present: atraumatic, normocephalic, normal inspection Eye exam: Present: normal appearance, PERRL, EOMI. Absent: scleral icterus, conjunctival injection, periorbital swelling ENT exam: Present: normal exam, mucous membranes moist Neck exam: Present: normal inspection, full ROM. Absent: tenderness, meningismus, lymphadenopathy Respiratory exam: Present: normal lung sounds bilaterally, wheezes (wheezing noted in RUL), decreased breath sounds (diminished breath sounds bilat). Absent : respiratory distress, rales, rhonchi, stridor Cardiovascular Exam: Present: regular rate, normal rhythm, normal heart sounds. Absent: systolic murmur, diastolic murmur, rubs, gallop, clicks GI/Abdominal exam: Present: soft, normal bowel sounds. Absent: distended, tenderness, guarding, rebound, rigid Neurological exam: Present: alert, oriented X3, CN II-XII intact Psychiatric exam: Present: normal affect, normal mood Course Vital Signs 06/06/18 06/06/18 06/06/18 22:32 23:16 23:18 Temperature 98.1 F Pulse Rate 100 74 Respiratory 20 20 Rate Blood Pressure 129/84 O2 Sat by Pulse 95 Oximetry 06/06/18 06/06/18 23:21 23:28 Temperature Pulse Rate 79 74 Respiratory Rate Blood Pressure O2 Sat by Pulse Oximetry Medical Decision Making - Medical Decision Making 52-year-old male presents to the emergency department for chief of cough and congestion 3 days. Patient states cough is productive with clear sputum. Patient denies any shortness of breath or chest pain. Vitals within acceptable limits, pulse rate stable in 70s. Patient has wheeze noted in lungs. Patient feeling better after albuterol treatment. Influenza negative. Chest x-ray negative. Patient will be treated with steroids. Discussed returning if he has any worsening symptoms. - Lab Data Lab Results 06/06/18 Range/Units 23:09 Influenza Type A RNA Not Detected (Not Detectd) Influenza Type B (PCR) Not Detected (Not Detectd) Disposition Clinical Impression: Cough Disposition: HOME SELF-CARE Condition: Good Instructions (If sedation given, give patient instructions): Upper Respiratory Infection (ED) Additional Instructions: Please take azithromycin and steroid as directed. Please follow-up with primary care as soon as possible. If you have any shortness of breath or chest pain return immediately to the emergency department. If you have any other worsening symptoms return to the emergency department. Prescriptions: Azithromycin [Zithromax Z-pack] 250 mg PO DIRECTED #6 tab predniSONE 50 mg PO DAILY #5 tablet Is patient prescribed a controlled substance at d/c from ED?: No Referrals: Blayne Aguayo MD [Primary Care Provider] - 1-2 days Time of Disposition: 00:52
--- NOTE | 2018-06-06 23:33 | XR ---
EXAMINATION TYPE: XR chest 2V DATE OF EXAM: 06/06/2018 COMPARISON: 03/15/2018 HISTORY: Chest pain TECHNIQUE: Frontal and lateral views of the chest are obtained. FINDINGS: Heart and mediastinum are normal. Lungs are clear. Diaphragm is normal. Bony thorax appear s normal. IMPRESSION: Normal chest. No change.
[2018-06-07 01:17] VITALS: BP 142/97; PULSE 88; RESP 18
== END 2018-06-07 01:16 | disposition home or self-care (01) ==
LOC: EC 22:17
DX: R05 Cough (principal); R06.2 Wheezing; R09.89 Other specified symptoms and signs involving the circulatory and respiratory systems; Z88.2 Allergy status to sulfonamides; Z87.01 Personal history of pneumonia (recurrent)
CPT/HCPCS: 71046; 87502; 94640; 99285